=== PATIENT | female | born 1995 | race Caucasian/White ===

== ENCOUNTER 2024-01-12 21:26 | Emergency (ER) | payer SELFPAY ==
[2024-01-12] MEDS ORDERED: Lidocaine 1% PF 5 ML VIAL ONE (22:41)
== END 2024-01-12 23:14 | disposition home or self-care (01) ==
LOC: CSHERS 21:26
DX: S61.210A Laceration without foreign body of right index finger without damage to nail, initial encounter (principal); E11.9 Type 2 diabetes mellitus without complications; W26.0XXA Contact with knife, initial encounter
CPT/HCPCS: 12001; 99282